=== PATIENT | female | born 1980 | race Caucasian/White ===

== ENCOUNTER 2016-09-26 22:28 | Emergency (ER) | payer MEDICAID ==
[~2016-09-26] VITALS: Ht 170.2 cm; Wt 97.1 kg
[~2016-09-26 22:28] MED LIST: Acetaminophen/Hydrocodone Bi PO; COLACE100 M1 PO; CYCLOBENZAPRINE10 M1 PO; MACROBID100 MG PO; OMNICEF250 MG/5 M PO; PAXIL20 M1; REZYST250 MG PO; XANAX0.25 MG PO
[2016-09-26 23:14] VITALS: BP 137/90
--- NOTE | 2016-09-27 00:03 | NUR ---
PATIENT PRESENTS TO ED WITH RT SIDE NUMBNESS, ARMS, FACE FOR 2 DAYS, WITH BACK . PT DENIES N/V/D; SKIN IS PINK/WARM/DRY; AAOX4 WITH EVEN AND STEADY GAIT; LUNGS CLEAR BL; HR EVEN AND REGULAR; PT DENIES ANY FEVER, CP, SOB, OR COUGH AT THIS TIME; PATIENT STATES PAIN OF 6/10 AT THIS TIME; VSS; PATIENT POSITIONED FOR COMFORT; HOB ELEVATED; BEDRAILS UP X2; BED DOWN. ER MD MADE AWARE OF PT STATUS.
--- NOTE | 2016-09-27 00:03 | NUR ---
Patient to OF.
--- NOTE | 2016-09-27 00:15 | NUR ---
Patient being evaluated by physician DR ARMAS at bedside.
--- NOTE | 2016-09-27 01:24 | NUR ---
Patient discharged with v/s stable. Written and verbal after care instructions given and explained. Patient verbalized understanding. Ambulatory with steady gait. All questions addressed prior to discharge. Advised to follow up with PMD.
[2016-09-27 01:25] VITALS: BP 131/82
[2016-11-29] MEDS ORDERED: LIORESAL10 MG PO (11:04)
[2016-11-29] MEDS ORDERED: MOTRIN400 MG PO (11:04)
== END 2016-09-27 01:24 | disposition home or self-care (01) ==
LOC: MED 22:28
DX: F41.9 Anxiety disorder, unspecified (principal); Z79.899 Other long term (current) drug therapy

== ENCOUNTER 2016-10-28 21:51 | Emergency (ER) | payer MEDICAID ==
[~2016-10-28] VITALS: Ht 167.6 cm; Wt 96.2 kg
[2016-10-28 22:01] VITALS: BP 142/101
--- NOTE | 2016-10-28 22:18 | NUR ---
PT TAKEN TO OF
--- NOTE | 2016-10-28 22:20 | NUR ---
PT BIB FAMILY C/O LT. ARM PAIN, NECK PAIN X 2 DAYS, NO TRAUMA NOR INJURY. PT DENIES N/V/D; SKIN IS INTACT, PINK/WARM/DRY; AAOX4, PERRL, WITH EVEN AND STEADY GAIT; LUNGS CLEAR BL, BREATHING UNLABORED; HR EVEN AND REGULAR, BL PERIPHERAL PULSES PRESENT; BS ACTIVE X4, NO TENDERNESS TO PALPATION. PT DENIES ANY FEVER, CP, SOB, OR COUGH AT THIS TIME; PT STATES 7/10 PAIN AT THIS TIME; VSS; PATIENT POSITIONED FOR COMFORT; HOB ELEVATED; BEDRAILS UP X2; BED DOWN. ER MD TO NATHANAEL, ALL ORDER EXECUTED
--- NOTE | 2016-10-28 22:24 | NUR ---
Dr. Thomas evaluating patient
[2016-10-28 22:54] VITALS: BP 140/99
--- NOTE | 2016-10-28 22:57 | NUR ---
Patient discharged with v/s stable. Written and verbal after care instructions given and explained. Patient alert, oriented and verbalized understanding of instructions. Ambulatory with steady gait. All questions addressed prior to discharge. ID band removed. Patient advised to follow up with PMD. Rx of NORCO, ATIVAN, FLEXERIL given. Patient educated on indication of medication including possible reaction and side effects. Opportunity to ask questions provided and answered.
[2016-11-29] MEDS ORDERED: MOTRIN400 MG PO (11:04)
[2016-11-29] MEDS ORDERED: LIORESAL10 MG PO (11:04)
== END 2016-10-28 22:57 | disposition home or self-care (01) ==
LOC: MED 21:51
DX: S46.911A Strain of unspecified muscle, fascia and tendon at shoulder and upper arm level, right arm, initial encounter (principal); F41.9 Anxiety disorder, unspecified; X58.XXXA Exposure to other specified factors, initial encounter; Y93.89 Activity, other specified; Y92.89 Other specified places as the place of occurrence of the external cause; Y99.8 Other external cause status

== ENCOUNTER 2016-11-29 10:46 | Emergency (ER) | payer MEDICAID ==
[~2016-11-29] VITALS: Ht 170.2 cm; Wt 96.2 kg
[~2016-11-29 10:46] MED LIST changes: -COLACE100 M1 PO; +CYCL10TA40 PO; -CYCLOBENZAPRINE10 M1 PO; +DOCU-67 PO; -MACROBID100 MG PO; -OMNICEF250 MG/5 M PO; -PAXIL20 M1; -REZYST250 MG PO; +SACC250C6 PO; -XANAX0.25 MG PO; +[UNRECOGNIZED DRUG - CODE] PO
[2016-11-29 10:59] VITALS: BP 149/93
[2016-11-29] MEDS ORDERED: BACL10TA4 PO (11:04)
[2016-11-29] MEDS ORDERED: IBUP-1842 PO (11:04)
--- NOTE | 2016-11-29 11:05 | NUR ---
PT AMBULATE TO RESTROOM. URINE CUP AND WIPE GIVEN FOR SAMPLE.
--- NOTE | 2016-11-29 11:10 | NUR ---
Patient ambulated to bed 08. Dr. Curiel at bedside to evaluate patient.
[2016-11-29] MEDS ORDERED: HYDROcodone/APAP 5/325 MG 1 TAB TAB PO ONE (11:15)
--- NOTE | 2016-11-29 11:20 | NUR ---
PT STATES C/O VAGINAL BLEED [id number] WITH PELVIC CRAMPS. STS GOING THROUGH 10 TAMPONS A DAY. STS HX LOW PLATELETS. LMP 11/20/16 . DENIES N/V/D; SKIN IS PINK/WARM/DRY; AAOX4 WITH EVEN AND STEADY GAIT; LUNGS CLEAR BL; HR EVEN AND REGULAR; PT DENIES ANY FEVER, CP, SOB, OR COUGH AT THIS TIME; PATIENT STATES PAIN OF 8/10 AT THIS TIME; VSS; PATIENT POSITIONED FOR COMFORT; HOB ELEVATED; BEDRAILS UP X2; BED DOWN. ER MD MADE AWARE OF PT STATUS.
--- NOTE | 2016-11-29 11:21 | NUR ---
LAB at bedside.
--- NOTE | 2016-11-29 11:28 | NUR ---
Patient going to US via wheelchair per tech.
[2016-11-29 11:30] LABS: HEMOGLOBIN 13.1 g/dL (12.0-16.0)
[2016-11-29 11:32] LABS: BILIRUBIN,URINE NEGATIVE (NEGATIVE); BLOOD, URINE 3+ (NEGATIVE); COLOR,URINE RED (YELLOW); LEUKOCYTE ESTERASE ,URINE NEGATIVE (NEGATIVE); NITRITE, URINE NEGATIVE (NEGATIVE); PROTEIN,URINE NEGATIVE (NEGATIVE); UGLUCOSE NEGATIVE (NEGATIVE); UROBILINOGEN,URINE 0.2 EU/dL (0.2 - 1)
[2016-11-29 11:34] LABS: WHITE BLOOD COUNT (AUTO) 14.2 K/uL (4.8-10.8)
[2016-11-29 11:40] LABS: ANION GAP 10.2 (8-16); CALCIUM 8.8 mg/dL (8.5-10.1); CARBON DIOXIDE 29.9 mmol/L (21-32); CREATININE 0.9 mg/dL (0.6-1.3); POTASSIUM 4.1 mmol/L (3.5-5.1)
[2016-11-29 11:41] LABS: APPEARANCE,URINE HAZY (CLEAR); BACTERIA,URINE 0-2 (RARE) /HPF (None Seen); RBC,URINE >100 /HPF (0-5); WBC,URINE 0-5 (RARE) /HPF (0-5)
[2016-11-29 11:46] LABS: ALBUMIN 3.7 g/dL (3.4-5.0); TOTAL BILIRUBIN 0.3 mg/dL (0.0-1.0); TOTAL PROTEIN, SERUM 8.1 g/dL (6.4-8.2)
[2016-11-29 11:49] LABS: INR 1.1 (0.8-1.2); PARTIAL THROMBOPLASTIN TIME 26.4 secs (22-35.6)
[2016-11-29 11:57] LABS: HEMATOCRIT 39.6 % (36-48); MEAN CORPUSCULAR HEMOGLOBIN 29 pg (27-31); MEAN CORPUSCULAR HGB CONC 33 g/dL (33-37); MEAN CORPUSCULAR VOLUME 88 fL (80-94); PLATELET COUNT (AUTO) 75 K/uL (140-450); RED BLOOD CELL COUNT(AUTO) 4.52 MIL/uL (4.20-5.40); RED CELL DISTRIBUTION WIDTH 13.4 % (11.6-13.7)
[2016-11-29 12:01] LABS: LYMPHOCYTES % (MANUAL) 30 % (20-46); MONOCYTES % (MANUAL) 7 % (5-12)
[2016-11-29 12:02] LABS: BASOPHILS % (MANUAL) 1 % (0-2); EOSINOPHILS % (MANUAL) 3 % (0-4)
[2016-11-29 12:03] LABS: NEUTROPHILS % (MANUAL) 59 (43-65)
--- NOTE | 2016-11-29 12:03 | NUR ---
PATIENT BACK FROM US VIA W/C. FAMILY AT BEDSIDE. DENIES DISCOMFORT
[2016-11-29 12:04] LABS: PLATELET ESTIMATE GIANT PLATELET SEEN
[2016-11-29 12:57] VITALS: BP 128/80
--- NOTE | 2016-11-29 12:58 | NUR ---
Patient discharged with v/s stable. Written and verbal after care instructions given and explained. Patient alert, oriented and verbalized understanding of instructions. Ambulatory with steady gait. All questions addressed prior to discharge. ID band removed. Patient advised to follow up with PMD. Rx of MEDROXYPROGESTERONE ACETATE given. Patient educated on indication of medication including possible reaction and side effects. Opportunity to ask questions provided and answered.
== END 2016-11-29 12:58 | disposition home or self-care (01) ==
LOC: MED 10:46
DX: D25.9 Leiomyoma of uterus, unspecified (principal); N92.0 Excessive and frequent menstruation with regular cycle
CPT/HCPCS: 36415; 76830; 80053; 81001; 81025; 84702; 85025; 85610; 85730; 86886; 86900; 86901; 99285

== ENCOUNTER 2018-05-01 16:47 | Emergency (ER) | payer MEDICAID ==
[~2018-05-01] VITALS: Ht 167.6 cm; Wt 98.0 kg
[~2018-05-01 16:47] MED LIST changes: +BACL10TA4 PO; +CYCL10TA14 PO; -CYCL10TA40 PO; +DOCU-299 PO; -DOCU-67 PO; +IBUP-1842 PO
[2018-05-01 16:52] VITALS: BP 139/85
[2018-05-01] MEDS ORDERED: NACL 0.9% 1,000 ML IV ONE (17:08)
[2018-05-01] MEDS ORDERED: ONDANSETRON 4 MG/2 ML VIAL IVP ONE ×2 (17:10→21:15)
[2018-05-01] MEDS ORDERED: KETOROLAC 30 MG/ML VIAL IVP ONE (17:10)
[2018-05-01 17:53] LABS: ALBUMIN 3.8 g/dL (3.4-5.0); ANION GAP 13.1 (8-16); CARBON DIOXIDE 26.5 mmol/L (21-32); POTASSIUM 3.6 mmol/L (3.5-5.1); TOTAL BILIRUBIN 0.3 mg/dL (0.0-1.0)
[2018-05-01 18:17] LABS: BASOPHILS % (AUTO) 0.4 % (0.0-2.0); EOSINOPHILS # (AUTO) 0.3 K/uL (0-0.4); HEMATOCRIT 38.4 % (36-48); HEMOGLOBIN 12.5 g/dL (12.0-16.0); LYMPHOCYTES % (AUTO) 33.2 % (20.5-51.1); MEAN CORPUSCULAR HEMOGLOBIN 28 pg (27-31); MEAN CORPUSCULAR HGB CONC 33 g/dL (33-37); MEAN CORPUSCULAR VOLUME 86.7 fL (80-94); MONOCYTES % (AUTO) 10.9 % (1.7-9.3); NEUTROPHILS # (AUTO) 4.8 K/uL (1.8-7.7); NEUTROPHILS % (AUTO) 52.5 % (42.2-75.2); PLATELET COUNT (AUTO) 173 K/uL (140-450); RED BLOOD CELL COUNT(AUTO) 4.43 MIL/uL (4.20-5.40); RED CELL DISTRIBUTION WIDTH 13.9 % (11.6-13.7); WHITE BLOOD COUNT (AUTO) 9.2 K/uL (4.8-10.8)
[2018-05-01] MEDS ORDERED: PIPERACILLIN/TAZOBACTAM 3.375 GM in DEXTROSE 5% 50 ML IV ONE (19:10)
[2018-05-01] MEDS ORDERED: MORPHINE SULFATE 4 MG/ML SYR IVP ONE (19:20)
[2018-05-01] MEDS ORDERED: PIPERACILLIN/TAZOBACTAM 3.375 GM VIAL IV ONE (19:33)
[2018-05-01 21:35] VITALS: BP 115/61
== END 2018-05-01 21:35 | disposition short-term general hospital (02) ==
LOC: MED 16:47
DX: R10.31 Right lower quadrant pain (principal); R11.0 Nausea; R63.0 Anorexia
CPT/HCPCS: 36415; 74176; 80053; 81025; 85025; 87040; 96365; 96375; 99285; J1885; J2270; J2405; J2543; J7030; J7060

== ENCOUNTER 2020-04-07 14:17 | Emergency (ER) | payer MEDICAID ==
[~2020-04-07] VITALS: Ht 170.2 cm; Wt 97.1 kg
[2020-04-07 14:32] VITALS: BP 147/86
--- NOTE | 2020-04-07 14:35 | NUR ---
40 YEAR OLD FEMALE COMPLAINS OF LOWER BACK PAIN X SATURDAY. PT STATES THAT SHE FELL DOWN 3 STEPS IN A STAIRCASE AND THAT SHE HAS HAD PAIN EVER SINCE. PT AOX4, BREATHING EVEN AND UNLABORED, SKIN WARM AND DRY. BED IN LOWEST POSITION, LOCKED, BED RAIL UPX1. PMH -DENIES ALLERGIES - NKA
--- NOTE | 2020-04-07 15:08 | NUR ---
TO XRAY VIA W/C
[2020-04-07] MEDS ORDERED: KETOROLAC 60 MG/2 ML VIAL IM ONE (15:30)
--- NOTE | 2020-04-07 15:35 | NUR ---
PT TAKEN TO X-RAY VIA W/C.
--- NOTE | 2020-04-07 15:52 | NUR ---
PT ALERT AND AWAKE, BREATHING EVEN AND UNLABORED
--- NOTE | 2020-04-07 16:30 | NUR ---
Patient discharged with v/s stable. Written and verbal after care instructions about tailbone injury given and explained. Patient alert, oriented and verbalized understanding of instructions. Ambulatory with steady gait. All questions addressed prior to discharge. ID band removed. Patient advised to follow up with PMD. Rx of voltaren, tramadol, ibuprofen given. Patient educated on indication of medication including possible reaction and side effects. Opportunity to ask questions provided and answered.
[2020-04-07 16:36] VITALS: BP 140/87
== END 2020-04-07 16:30 | disposition home or self-care (01) ==
LOC: MED 14:17
DX: S30.0XXA Contusion of lower back and pelvis, initial encounter (principal); W19.XXXA Unspecified fall, initial encounter; Y93.89 Activity, other specified; Y92.89 Other specified places as the place of occurrence of the external cause; Y99.8 Other external cause status
CPT/HCPCS: 72110; 72170; 72220; 81025; 96372; 99284; J1885

== ENCOUNTER 2020-04-26 18:17 | Emergency (ER) | payer MEDICAID ==
[~2020-04-26] VITALS: Ht 170.2 cm; Wt 96.6 kg
[2020-04-26 18:24] VITALS: BP 114/86
[2020-04-26] MEDS ORDERED: KETOROLAC 30 MG/ML VIAL IM ONE (18:40)
[2020-04-26 19:45] VITALS: BP 114/86
== END 2020-04-26 19:45 | disposition home or self-care (01) ==
LOC: MED 18:17
DX: S93.402A Sprain of unspecified ligament of left ankle, initial encounter (principal); Z98.890 Other specified postprocedural states; Z90.49 Acquired absence of other specified parts of digestive tract; Z87.81 Personal history of (healed) traumatic fracture; X58.XXXA Exposure to other specified factors, initial encounter; Y93.89 Activity, other specified; Y92.89 Other specified places as the place of occurrence of the external cause; Y99.8 Other external cause status
CPT/HCPCS: 73610; 73630; 96372; 99284; J1885

== ENCOUNTER 2022-10-12 18:08 | Emergency (ER) | payer MEDICAID ==
[~2022-10-12] VITALS: Ht 165.1 cm; Wt 104.3 kg
[2022-10-12 18:22] VITALS: BP 173/95
[2022-10-12 18:46] LABS: APPEARANCE,URINE CLEAR (CLEAR); BILIRUBIN,URINE NEGATIVE (NEGATIVE); BLOOD, URINE 2+ (NEGATIVE); COLOR,URINE YELLOW (YELLOW); LEUKOCYTE ESTERASE ,URINE NEGATIVE (NEGATIVE); NITRITE, URINE NEGATIVE (NEGATIVE); UGLUCOSE NEGATIVE (NEGATIVE)
[2022-10-12 19:47] LABS: WBC,URINE NONE SEEN /HPF (0-5)
[2022-10-12 19:50] LABS: RBC,URINE 0-5 /HPF (0-5)
[2022-10-12 20:11] LABS: BASOPHILS # (AUTO) 0.1 K/uL (0.00-0.22); BASOPHILS % (AUTO) 0.5 % (0.0-2.0); EOSINOPHILS # (AUTO) 0.4 K/uL (0-0.4); EOSINOPHILS % (AUTO) 2.8 % (0.0-4.0); HEMATOCRIT 38.7 % (36-48); HEMOGLOBIN 12.7 g/dL (12.0-16.0); LYMPHOCYTES # (AUTO) 4.3 K/uL (2.5-16.5); LYMPHOCYTES % (AUTO) 32.9 % (20.5-51.1); MEAN CORPUSCULAR HEMOGLOBIN 29 pg (27-31); MEAN CORPUSCULAR HGB CONC 33 g/dL (33-37); MEAN CORPUSCULAR VOLUME 87.1 fL (80-94); MONOCYTES # (AUTO) 1.1 K/uL (0.8-1.0); MONOCYTES % (AUTO) 8.7 % (1.7-9.3); NEUTROPHILS # (AUTO) 7.2 K/uL (1.8-7.7); NEUTROPHILS % (AUTO) 55.1 % (42.2-75.2); PLATELET COUNT (AUTO) 257 K/uL (140-450); RED BLOOD CELL COUNT(AUTO) 4.44 MIL/uL (4.20-5.40); RED CELL DISTRIBUTION WIDTH 14.6 % (11.6-13.7); WHITE BLOOD COUNT (AUTO) 13.1 K/uL (4.8-10.8)
[2022-10-12 20:29] LABS: ALBUMIN 3.4 g/dL (3.4-5.0); ANION GAP 9.3 (8-16); CARBON DIOXIDE 29.8 mmol/L (21-32); POTASSIUM 4.1 mmol/L (3.5-5.1); TOTAL BILIRUBIN 0.2 mg/dL (0.0-1.0)
[2022-10-12 21:43] VITALS: BP 173/95
== END 2022-10-12 21:43 | disposition home or self-care (01) ==
LOC: MED 18:08
DX: N93.8 Other specified abnormal uterine and vaginal bleeding (principal); Z79.899 Other long term (current) drug therapy
CPT/HCPCS: 36415; 76830; 80053; 81001; 81025; 85025; 85610; 85730; 86900; 86901; 99284; Q0092

== ENCOUNTER 2023-01-10 11:32 | Emergency (ER) | payer MEDICAID ==
[~2023-01-10] VITALS: Ht 165.1 cm; Wt 111.6 kg
[2023-01-10 11:42] VITALS: BP 168/94; PULSE 91; RESP 20; TEMP 96.5; O2SAT 99
--- NOTE | 2023-01-10 12:37 | NUR ---
PT LABS DRAWN IN [facility], PT RETURNED TO [facility]
--- NOTE | 2023-01-10 12:53 | NUR ---
PT BEING EVALUATED BY GARY TOURE
[2023-01-10 13:09] LABS: BASOPHILS # (AUTO) 0.1 K/uL (0.00-0.22); BASOPHILS % (AUTO) 0.8 % (0.0-2.0); EOSINOPHILS # (AUTO) 0.3 K/uL (0-0.4); HEMOGLOBIN 13.3 g/dL (12.0-16.0); LYMPHOCYTES # (AUTO) 4.6 K/uL (2.5-16.5); LYMPHOCYTES % (AUTO) 29.1 % (20.5-51.1); MEAN CORPUSCULAR HEMOGLOBIN 28 pg (27-31); MEAN CORPUSCULAR HGB CONC 32 g/dL (33-37); MEAN CORPUSCULAR VOLUME 85.6 fL (80-94); MONOCYTES % (AUTO) 6.4 % (1.7-9.3); NEUTROPHILS # (AUTO) 9.8 K/uL (1.8-7.7); NEUTROPHILS % (AUTO) 61.7 % (42.2-75.2); PLATELET COUNT (AUTO) 341 K/uL (140-450); RED BLOOD CELL COUNT(AUTO) 4.79 MIL/uL (4.20-5.40); RED CELL DISTRIBUTION WIDTH 14.5 % (11.6-13.7); WHITE BLOOD COUNT (AUTO) 14.1 K/uL (4.8-10.8)
[2023-01-10 13:14] LABS: ALBUMIN 3.3 g/dL (3.4-5.0); ASPARTATE AMINOTRANSFERASE 30 U/L (15-37); CARBON DIOXIDE 26.7 mmol/L (21-32); CHLORIDE 100 mmol/L (98-107); GFR ARICAN-AMERICAN 79 mL/min (>90); GLUCOSE 130 mg/dL (74-106); LIPASE 68 U/L (73-393); POTASSIUM 3.7 mmol/L (3.5-5.1); SODIUM SERUM 136 mmol/L (136-145); TOTAL BILIRUBIN 0.3 mg/dL (0.0-1.0); UREA NITROGEN, BLOOD 12 mg/dL (7-18)
[2023-01-10 14:44] VITALS: BP 138/88; PULSE 88; RESP 20; TEMP 97.9; O2SAT 99
--- NOTE | 2023-01-10 14:44 | NUR ---
Patient discharged with v/s stable. Written and verbal after care instructions FOR NON SPECIFIC CHEST PAIN AND HEADACHE given and explained. Patient verbalized understanding. Ambulatory with steady gait. All questions addressed prior to discharge. Advised to follow up with PMD.
== END 2023-01-10 14:44 | disposition home or self-care (01) ==
LOC: MED 11:32
DX: R07.89 Other chest pain (principal); R51.9 Headache, unspecified; R03.0 Elevated blood-pressure reading, without diagnosis of hypertension; F41.9 Anxiety disorder, unspecified; F32.9 Major depressive disorder, single episode, unspecified
CPT/HCPCS: 36415; 71045; 80053; 83690; 84484; 85025; 93005; 99285